=== PATIENT | male | born 1995 | race Caucasian/White ===

== ENCOUNTER 2017-06-15 19:28 | Inpatient (IN) | payer MEDICAID ==
[~2017-06-15] VITALS: Ht 170.2 cm; Wt 100.0 kg
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
[2017-06-15] MEDS ORDERED: HYDROCODONE/APAP (10/325) TAB PO ONE (22:00)
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
[2017-06-15] MEDS ORDERED: ONDANSETRON 4 MG INJ IV STA (22:47)
[2017-06-15] MEDS ORDERED: morphine 4 MG/ML VIAL IV STA (22:47)
[2017-06-15] MEDS ORDERED: SOD CHLORIDE 0.9% 1,000 ML IV SCH (23:00)
[2017-06-15 23:28] LABS: ABNORMAL IP MESSAGE 1; BASOPHILS % 0.2 % (0.0-2.0); HEMATOCRIT 43.7 % (42.0-52.0); LYMPHOCYTES # 1.1 10^3/ul (0.8-2.9); LYMPHOCYTES % 5.7 % (15.0-51.0); MEAN CORPUSCULAR HEMOGLOBIN 30.8 pg (29.0-33.0); MEAN CORPUSCULAR HGB CONC 34.3 g/dl (32.0-37.0); MEAN CORPUSCULAR VOLUME 89.7 fl (82.0-101.0); MEAN PLATELET VOLUME 10.3 fl (7.4-10.4); MONOCYTE # 1.6 10^3/ul (0.3-0.9); MONOCYTES % 8.1 % (0.0-11.0); NEUTROPHIL # 16.4 10^3/ul (1.6-7.5); NEUTROPHILS % 85.5 % (39.0-77.0); PLATELET COUNT 330 10^3/UL (140-415); POSITIVE DIFF @See below; RED BLOOD COUNT 4.87 10^6/ul (4.70-6.10); RED CELL DISTRIBUTION WIDTH 12.9 % (11.5-14.5); WHITE BLOOD COUNT 19.2 10^3/ul (4.8-10.8)
--- NOTE | 2017-06-15 23:43 | EN ---
Date/Time of Note Date/Time of Note DATE: 06/15/17 TIME: 23:42 ER Progress Note Patient admitted to hospitalist. Dr. Solis from orthopedics consulted. BAO PRESLEY Jun 15, 2017 23:43
[2017-06-16] LABS: ALBUMIN 4.7 g/dl (3.3-4.9); ALBUMIN/GLOBULIN RATIO 1.17; BILIRUBIN,INDIRECT 0.2 mg/dl (0-1.1); BILIRUBIN,TOTAL 0.2 mg/dl (0.2-1.3); CALCIUM 10.3 mg/dl (8.4-10.2); CREATININE 0.97 mg/dl (0.61-1.24); POTASSIUM 4.2 mmol/L (3.5-5.1); TOTAL PROTEIN 8.7 g/dl (6.1-8.1)
[2017-06-16 00:16] LABS: INR 0.93; PROTIME 12.5 Sec (12.2-14.2)
[2017-06-16] MEDS ORDERED: KETOROLAC 30 MG INJ IV ONE (00:26)
[2017-06-16] MEDS ORDERED: SOD CHLORIDE 0.9% 1,000 ML IV SCH (00:37)
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
[2017-06-16 00:55] VITALS: TEMP 98.2
[2017-06-16] MEDS ORDERED: NACL 0.9% 3 ML SYG IV SCH (01:00)
[2017-06-16] MEDS ORDERED: ACETAMINOPHEN 325 MG TAB PO PRN (01:00)
[2017-06-16] MEDS ORDERED: ONDANSETRON 4 MG INJ IV PRN (01:00)
[2017-06-16 01:15] VITALS: BP 134/75; PULSE 71; RESP 18
[2017-06-16] MEDS: HYDROmorphONE 0.5 MG/0.5 ML SYG IV PRN ×4 (01:34→16:30)
[2017-06-16 01:42] VITALS: Ht 170.2 cm; Wt 100.0 kg
[2017-06-16 05:41] LABS: ABNORMAL IP MESSAGE 1; BASOPHILS % 0.2 % (0.0-2.0); EOSINOPHILS % 0.1 % (0.0-7.0); HEMATOCRIT 42.2 % (42.0-52.0); HEMOGLOBIN 14.2 g/dl (14.0-18.0); LYMPHOCYTES # 2.4 10^3/ul (0.8-2.9); LYMPHOCYTES % 18.8 % (15.0-51.0); MEAN CORPUSCULAR HEMOGLOBIN 30.7 pg (29.0-33.0); MEAN CORPUSCULAR HGB CONC 33.6 g/dl (32.0-37.0); MEAN CORPUSCULAR VOLUME 91.1 fl (82.0-101.0); MEAN PLATELET VOLUME 10.5 fl (7.4-10.4); MONOCYTE # 1.5 10^3/ul (0.3-0.9); MONOCYTES % 11.9 % (0.0-11.0); NEUTROPHIL # 8.8 10^3/ul (1.6-7.5); NEUTROPHILS % 68.7 % (39.0-77.0); PLATELET COUNT 299 10^3/UL (140-415); POSITIVE DIFF @See below; RED BLOOD COUNT 4.63 10^6/ul (4.70-6.10); RED CELL DISTRIBUTION WIDTH 13.1 % (11.5-14.5); WHITE BLOOD COUNT 12.8 10^3/ul (4.8-10.8)
[2017-06-16 06:10] LABS: INR 0.95; PROTIME 12.7 Sec (12.2-14.2)
[2017-06-16 06:11] LABS: PARTIAL THROMBOPLASTIN TIME 26.1 Sec (25.0-35.0)
[2017-06-16 06:16] LABS: ALBUMIN 4.2 g/dl (3.3-4.9); ALBUMIN/GLOBULIN RATIO 1.1; BILIRUBIN,INDIRECT 0.5 mg/dl (0-1.1); BILIRUBIN,TOTAL 0.5 mg/dl (0.2-1.3); CALCIUM 9.5 mg/dl (8.4-10.2); CREATININE 0.92 mg/dl (0.61-1.24); POTASSIUM 4.1 mmol/L (3.5-5.1)
[2017-06-16 06:34] LABS: THYROID STIMULATING HORMONE 3.01 MIU/L (0.465-4.680)
[2017-06-16 07:57] VITALS: BP 107/59; RESP 19
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
[2017-06-16] MEDS ORDERED: HYDROCODONE/APAP (5/325) TAB PO PRN (10:00)
[2017-06-16] MEDS: IBUPROFEN 600 MG TAB PO SCH ×2 (13:45→21:06)
[2017-06-16 15:41] VITALS: BP 121/59; RESP 19
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
[2017-06-16 19:57] VITALS: BP 122/81; RESP 18
[2017-06-16] MEDS: SOD CHLORIDE 0.9% 1,000 ML IV SCH (22:56)
[2017-06-17] VITALS (34 sets, daily range): BP systolic 102–177; BP diastolic 52–103; PULSE 78–134; RESP 16–21
[2017-06-17] MEDS: HYDROmorphONE 0.5 MG/0.5 ML SYG IV PRN ×3 (00:45→09:33)
[2017-06-17 05:53] LABS: BASOPHILS % 0.2 % (0.0-2.0); EOSINOPHILS # 0.1 10^3/ul (0.0-0.5); EOSINOPHILS % 1.4 % (0.0-7.0); HEMATOCRIT 42.1 % (42.0-52.0); HEMOGLOBIN 14.4 g/dl (14.0-18.0); LYMPHOCYTES # 2.5 10^3/ul (0.8-2.9); LYMPHOCYTES % 27.3 % (15.0-51.0); MEAN CORPUSCULAR HEMOGLOBIN 31.2 pg (29.0-33.0); MEAN CORPUSCULAR HGB CONC 34.2 g/dl (32.0-37.0); MEAN CORPUSCULAR VOLUME 91.1 fl (82.0-101.0); MEAN PLATELET VOLUME 10.5 fl (7.4-10.4); MONOCYTE # 1.1 10^3/ul (0.3-0.9); MONOCYTES % 11.8 % (0.0-11.0); NEUTROPHIL # 5.3 10^3/ul (1.6-7.5); NEUTROPHILS % 58.9 % (39.0-77.0); PLATELET COUNT 287 10^3/UL (140-415); RED BLOOD COUNT 4.62 10^6/ul (4.70-6.10); RED CELL DISTRIBUTION WIDTH 13.2 % (11.5-14.5)
[2017-06-17 06:18] LABS: CALCIUM 9.3 mg/dl (8.4-10.2); CREATININE 0.87 mg/dl (0.61-1.24)
[2017-06-17] MEDS: IBUPROFEN 600 MG TAB PO SCH ×3 (08:00→20:58)
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
[2017-06-17] MEDS: FISH OIL 1,000 MG CAP PO SCH ×2 (10:00→20:58)
--- NOTE | 2017-06-17 12:22 | HPN ---
Date/Time of Note Date/Time of Note DATE: 06/17/17 TIME: 12:22 Interval H&P Admission Note Pt. seen H&P reviewed: No system changes PEYMAN HERNANDEZ MD Jun 17, 2017 12:22
[2017-06-17] MEDS ORDERED: POLYMYXIN/BACITRACIN 1L IRRIG IRR ONE (12:40)
[2017-06-17] MEDS ORDERED: LIDOCAINE 2% (SDV) 5 ML INJ ONE (12:49)
[2017-06-17] MEDS ORDERED: GLYCOPYRROLATE 0.4 MG INJ ONE (12:49)
[2017-06-17] MEDS ORDERED: NEOSTIGMINE 3 MG/3 ML SYRINGE ONE (12:49)
[2017-06-17] MEDS ORDERED: SUCCINYLCHOLINE CHLORIDE 100 MG/5 ML SYG IV ONE (12:49)
[2017-06-17] MEDS ORDERED: ROCURONIUM 50 MG INJ ONE (12:49)
[2017-06-17] MEDS ORDERED: PROPOFOL 20 ML ONE (12:49)
[2017-06-17] MEDS ORDERED: MEPERIDINE 100 MG INJ ONE (12:49)
--- NOTE | 2017-06-17 12:55 | RADRPT ---
PROCEDURE: Soft tissue neck radiograph CLINICAL INDICATION: Pain. COMPARISON: None relevant listed. TECHNIQUE: Frontal and lateral radiograph of the neck soft tissues. FINDINGS: No prevertebral soft tissue swelling. No retained foreign body identified. The adenoids are not enlarged. No suspicious bone lesion. No fracture or subluxation of the cervical spine. IMPRESSION: No fracture identified. RPTAT: PP Physician Ariel Date Time Electronically viewed and signed by Justyna Iglesias Physician on 06/17/2017 12:55 LG/
[2017-06-17] MEDS ORDERED: EPHEDrine SULFATE 50 MG/5 ML SYG IV PRN (13:00)
[2017-06-17] MEDS ORDERED: HYDROmorphONE (0.2 MG/ML) 10ML SYG IV PRN ×3 (13:00)
[2017-06-17] MEDS ORDERED: MEPERIDINE 25 MG INJ IV PRN (13:00)
[2017-06-17] MEDS ORDERED: LABETALOL HCL 20MG INJ IV PRN (13:00)
[2017-06-17] MEDS ORDERED: DIPHENHYDRAMINE 50 MG INJ IV PRN (13:00)
[2017-06-17] MEDS ORDERED: hydrALAzine 20 MG INJ IV PRN (13:00)
[2017-06-17] MEDS ORDERED: FENTAnyl 50 MCG/ML VIAL IV PRN ×3 (13:00)
[2017-06-17] MEDS ORDERED: ONDANSETRON 4 MG INJ IV PRN (13:00)
[2017-06-17] MEDS ORDERED: METOCLOPRAMIDE 10 MG INJ IV PRN (13:00)
[2017-06-17] MEDS ORDERED: MIDAZOLAM 1 MG/ML 2 ML INJ IV PRN (13:00)
[2017-06-17] MEDS ORDERED: OXYCODONE/ACETAMINOPHEN (5/325) TAB PO PRN ×2 (13:00)
[2017-06-17] MEDS: SOD CHLORIDE 0.9% 1,000 ML IV SCH (13:06)
--- NOTE | 2017-06-17 15:35 | SIPON ---
Date/Time of Note Date/Time of Note DATE: 06/17/17 TIME: 15:22 Operative Report Preoperative Diagnosis . fracture dislocation of lisfranc joint of Rt.foot. fracture of 2nd,3rd,4th metatarsal shaft Postoperative Diagnosis same as preop Operation/Procedure Performed 1 open reduction and internal fixation of Lisfranc joimt fracture dislocation of Rt.foot. 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
[2017-06-17] MEDS ORDERED: NACL 0.9% 3 ML SYG IV SCH (16:00)
[2017-06-17] MEDS ORDERED: morphine 4 MG/ML VIAL IV PRN (16:00)
--- NOTE | 2017-06-17 16:28 | RADRPT ---
PROCEDURE: XR Foot. CLINICAL INDICATION: Pain. TECHNIQUE: Tarsometatarsal dislocations and metatarsal fracture status post cervical repair. COMPARISON: 03/15/2017 FINDINGS: 4 K-wires traverse the second through fifth metatarsal bases and middle, lateral cuneiform and cuboi d. A fifth K-wire traverses the right medial cuneiform and middle cuneiform. Improved anatomic align ment and fracture fragment approximation of distal metatarsal diaphyseal fractures of the second and third metatarsal bones. Suture kristen overlying the dorsum of the foot. No other fracture or dislo cation. IMPRESSION: 1. Postoperative changes compatible with tarsometatarsal dislocation repair and improved anatomic al ignment second through fourth metatarsal fractures. RPTAT:AAJJ Physician Nighat Date Time Electronically viewed and signed by Physician Nighat on 06/17/2017 16:27 SAGRARIO/
--- NOTE | 2017-06-17 16:44 | RADRPT ---
PROCEDURE: Intraoperative imaging of the bilateral feet with fluoroscopy. CLINICAL INDICATION: Bilateral foot pain Intraoperative. TECHNIQUE: Images of the bilateral feet were obtained in the operating room with an image intensif ier. No radiologist was in attendance. Fluoroscopy time is 1.5 minutes and 9 images were obtained. COMPARISON: No prior study is available for comparison. FINDINGS: Images demonstrate multiple surgical instruments overlying the midportion of both feet. IMPRESSION: 1. Intraoperative imaging of the bilateral feet. RPTAT: QQ .Cody Bell MD, Date Time Electronically viewed and signed by .Cody Bell MD, on 06/17/2017 16:44 .R/
[2017-06-17] MEDS ORDERED: hydrALAzine 20 MG INJ ONE (17:06)
[2017-06-17] MEDS: D5W-0.45 NACL + KCL 20 MEQ 1,000 ML IV SCH (17:44)
[2017-06-17] MEDS: HYDROCODONE/APAP (5/325) TAB PO PRN ×2 (17:54→22:02)
[2017-06-17] MEDS: CEFAZOLIN 1 GM/50 ML (PMX) 50 ML IVPB SCH ×2 (17:55→23:30)
--- NOTE | 2017-06-17 18:08 | OPR ---
DATE OF OPERATION: 06/17/2017 PREOPERATIVE DIAGNOSES: 1. Fracture dislocation of the Lisfranc joint of the right foot. 2. Fracture of the 2nd, 3rd, and 4th metatarsals of right foot. POSTOPERATIVE DIAGNOSES: 1. Fracture dislocation of the Lisfranc joint of the right foot. 2. Fracture of the 2nd, 3rd, and 4th metatarsals of right foot. PROCEDURE PERFORMED: 1. Open reduction and internal fixation of the marked metatarsal tarsal joint or Lisfranc joint of the right foot. 2. Manipulative reduction of the 2nd, 3rd, and 4th metatarsal shaft fracture of the right foot. ANESTHESIA: General anesthesia. SURGEON: Royce Solis MD OPERATIVE PROCEDURE AND FINDINGS: Under general anesthesia, the patient was placed in supine position upon the operating table. A tourniquet was placed over the proximal portion of the right thigh and was inflated up to 300 mmHg prior to the procedure. The usual prep and drape was done exposing the right lower extremity. The tarsal joint fracture dislocation was approached through the transverse incision over the dorsum of the right foot with considerable difficulties. The metatarsal tarsal joint was identified and reduced and this was internally fixed using multiple K-wires. After the reduction and fixation of the metatarsal tarsal joint, attention was then directed to the multiple metatarsal fractures, however, because of the less than ideal soft tissue condition, additional incision over the area to carry out the open surgical reduction might cause soft tissue problems including possible necrosis and it was decided to carry out the manipulative reduction under fluoroscopic monitoring followed by a luis carlos taping. At the end of the procedure the wound was irrigated, and following the hemostasis, closure of the incision was carried out using 2-0 Vicryl in subcuticular fashion, which was followed by final closure with skin kristen. After bending the J wire tips, and after proper sterile dressings, the entire right foot was immobilized in a postoperative hard sole shoe. The patient tolerated the entire procedure very well and was sent to the recovery room in good condition. Dictated By: In Cass Solis MD /mitchell/[email or web address] /Document#: [id number]
[2017-06-18] MEDS: HYDROCODONE/APAP (5/325) TAB PO PRN ×4 (01:35→21:25)
[2017-06-18] MEDS: D5W-0.45 NACL + KCL 20 MEQ 1,000 ML IV SCH ×3 (01:36→16:08)
[2017-06-18 05:13] LABS: BASOPHILS % 0.1 % (0.0-2.0); EOSINOPHILS % 0.4 % (0.0-7.0); HEMOGLOBIN 13.4 g/dl (14.0-18.0); MEAN CORPUSCULAR HGB CONC 33.5 g/dl (32.0-37.0); MEAN CORPUSCULAR VOLUME 92.6 fl (82.0-101.0); MEAN PLATELET VOLUME 10.1 fl (7.4-10.4); MONOCYTE # 1.2 10^3/ul (0.3-0.9); MONOCYTES % 11.8 % (0.0-11.0); NEUTROPHILS % 68.3 % (39.0-77.0); PLATELET COUNT 271 10^3/UL (140-415); RED BLOOD COUNT 4.32 10^6/ul (4.70-6.10); RED CELL DISTRIBUTION WIDTH 13.2 % (11.5-14.5); WHITE BLOOD COUNT 10.3 10^3/ul (4.8-10.8)
[2017-06-18 05:35] LABS: CALCIUM 9.3 mg/dl (8.4-10.2); CREATININE 0.83 mg/dl (0.61-1.24); POTASSIUM 4.1 mmol/L (3.5-5.1)
[2017-06-18] MEDS ORDERED: morphine 2 MG INJ IV ONE (06:49)
--- NOTE | 2017-06-18 07:18 | RADRPT ---
PROCEDURE: XR Chest. CLINICAL INDICATION: chest pain TECHNIQUE: Single frontal view of the chest was obtained COMPARISON: None FINDINGS: The heart and mediastinum are within normal limits. The lungs are clear. There is no pleural effusion or pneumothorax. RPTAT: AA IMPRESSION: No acute disease. .Mukesh Self MD, Date Time Electronically viewed and signed by .Mukesh Self MD, on 06/18/2017 07:18 .S/
[2017-06-18] MEDS ORDERED: KETOROLAC 15 MG INJ IV STA (07:38)
[2017-06-18] MEDS: CEFAZOLIN 1 GM/50 ML (PMX) 50 ML IVPB SCH (07:59)
[2017-06-18 08:14] VITALS: BP 133/66; RESP 18
[2017-06-18 08:17] LABS: TROPONIN-I 0.013 ng/ml (0.00-0.12)
[2017-06-18 08:18] LABS: CK-MB 1.35 ng/ml (0.0-2.4)
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
[2017-06-18] MEDS: FISH OIL 1,000 MG CAP PO SCH ×2 (09:30→21:27)
[2017-06-18] MEDS: IBUPROFEN 600 MG TAB PO SCH ×3 (09:30→21:25)
[2017-06-18] MEDS: ENOXAPARIN 40 MG/0.4 ML SYG SC SCH (09:33)
[2017-06-18 15:57] LABS: CK-MB 1.76 ng/ml (0.0-2.4); TROPONIN-I < 0.012 ng/ml (0.00-0.12)
[2017-06-18 16:00] VITALS: BP 119/61; RESP 18
[2017-06-18 20:25] VITALS: BP 120/66; RESP 20
[2017-06-18 20:26] VITALS: PULSE 89
[2017-06-19] MEDS: HYDROCODONE/APAP (5/325) TAB PO PRN ×6 (00:20→21:48)
[2017-06-19 03:04] VITALS: BP 122/62; RESP 18
[2017-06-19 05:20] LABS: BASOPHILS % 0.3 % (0.0-2.0); EOSINOPHILS # 0.2 10^3/ul (0.0-0.5); EOSINOPHILS % 1.6 % (0.0-7.0); HEMOGLOBIN 12.9 g/dl (14.0-18.0); LYMPHOCYTES # 2.4 10^3/ul (0.8-2.9); LYMPHOCYTES % 24.6 % (15.0-51.0); MEAN CORPUSCULAR HEMOGLOBIN 31.2 pg (29.0-33.0); MEAN CORPUSCULAR HGB CONC 33.9 g/dl (32.0-37.0); MEAN CORPUSCULAR VOLUME 91.8 fl (82.0-101.0); MEAN PLATELET VOLUME 10.2 fl (7.4-10.4); MONOCYTES % 9.9 % (0.0-11.0); NEUTROPHILS % 63.1 % (39.0-77.0); PLATELET COUNT 287 10^3/UL (140-415); RED BLOOD COUNT 4.14 10^6/ul (4.70-6.10); RED CELL DISTRIBUTION WIDTH 13.1 % (11.5-14.5); WHITE BLOOD COUNT 9.6 10^3/ul (4.8-10.8)
[2017-06-19 06:06] LABS: CALCIUM 9.1 mg/dl (8.4-10.2); CREATININE 0.85 mg/dl (0.61-1.24); POTASSIUM 3.7 mmol/L (3.5-5.1)
[2017-06-19] MEDS: D5W-0.45 NACL + KCL 20 MEQ 1,000 ML IV SCH ×2 (07:36→17:36)
[2017-06-19 08:37] VITALS: BP 110/58; RESP 18
[2017-06-19] MEDS: IBUPROFEN 600 MG TAB PO SCH ×3 (08:56→21:44)
[2017-06-19] MEDS: FISH OIL 1,000 MG CAP PO SCH ×2 (08:56→21:44)
[2017-06-19] MEDS: ENOXAPARIN 40 MG/0.4 ML SYG SC SCH (09:00)
--- NOTE | 2017-06-19 10:07 | PN ---
Date/Time of Note Date/Time of Note DATE: 06/19/17 TIME: 10:02 Assessment/Plan VTE Prophylaxis VTE Prophylaxis Intervention: LMWH Lines/Catheters [facility] Peripheral IV Urinary Cath still in place: No Assessment/Plan Problems: (1) S/P ORIF (open reduction internal fixation) fracture Onset Date: ~ 06/17/2017 Status: Acute Comment: Patient is progressing nicely after surgery. We will need input from the operative surgeon, Dr. Solis, about his weightbearing status and for his discharge planning. He is approaching a time for discharge at this point (2) Lisfranc fracture Status: Acute Comment: Status post surgical correction (3) Lisfranc's dislocation Status: Acute Comment: Status post surgical correction Qualifiers: Encounter type: initial encounter Laterality: right Qualified Code: S93.324A - Dislocation of tarsometatarsal joint of right foot, initial encounter (4) Hypertriglyceridemia Status: Chronic Comment: This would be benefited by weight loss the patient has been counseled. The meantime omega-3 fish oil for home usage Subjective 24 Hr Interval Summary Free Text/Dictation Charming young gentleman standing at the bedside using a front wheeled walker nonweightbearing to the right leg which is in a dressing Constitutional: no complaints Eyes: no complaints Respiratory: no complaints (Denies chest pain shortness of breath) Cardiovascular: no complaints (Denies palpitation) Gastrointestinal: no complaints Genitourinary: no complaints Musculoskeletal: other (Foot pain on the right-hand side) Exam/Review of Systems Vital Signs Vitals Vital Signs Date Time Temp Pulse Resp B/P Pulse Ox O2 Delivery O2 Flow Rate FiO2 06/19/17 08:37 98.2 77 18 110/58 97 06/17/17 20:30 Nasal Cannula 2.0 Intake and Output 06/18/17 06/18/17 06/19/17 15:00 23:00 07:00 Intake Total 50 ml 2400 ml 1600 ml Output Total 1000 ml 1400 ml Balance 50 ml 1400 ml 200 ml Exam Constitutional: alert, oriented Neck: non-tender, supple Respiratory: clear to auscultation, normal air movement Cardiovascular: nl pulses, regular rate and rhythm Gastrointestinal: nl liver, spleen, non-tender, soft Extremities: normal pulses, other (Normal sensory exam to the right distal foot ) Results Result Diagram: 06/19/17 0432 06/19/17 0432 Results 24 hrs Laboratory Tests Test 06/18/17 14:37 06/19/17 04:32 Creatinine Kinase MB (Mass) 1.76 Troponin I < 0.012 White Blood Count 9.6 Red Blood Count 4.14 L Hemoglobin 12.9 L Hematocrit 38.0 L Mean Corpuscular Volume 91.8 Mean Corpuscular Hemoglobin 31.2 Mean Corpuscular Hemoglobin Concent 33.9 Red Cell Distribution Width 13.1 Platelet Count 287 Mean Platelet Volume 10.2 Neutrophils % 63.1 Lymphocytes % 24.6 Monocytes % 9.9 Eosinophils % 1.6 Basophils % 0.3 Nucleated Red Blood Cells % 0.0 Neutrophils # 6.0 Lymphocytes # 2.4 Monocytes # 1.0 H Eosinophils # 0.2 Basophils # 0.0 Nucleated Red Blood Cells # 0.0 Sodium Level 142 Potassium Level 3.7 Chloride Level 104 Carbon Dioxide Level 27 Anion Gap 15 Blood Urea Nitrogen 8 Creatinine 0.85 Glucose Level 95 Calcium Level 9.1 Medications Medications Current Medications Ondansetron HCl (Zofran Inj) 4 mg Q6H PRN IV NAUSEA AND/OR VOMITING; Start at 01:00 Acetaminophen (Tylenol Tab) 650 mg Q6H PRN PO PAIN LEVEL 1-3 OR FEVER; Start 06/16/17 at 01:00 Ibuprofen (Motrin) 600 mg TID PO Last administered on 06/19/17 08:56; Admin Dose 600 MG; Start 06/16/17 at 13:00 Fish Oil 1000 mg 1,000 mg BID PO Last administered on 06/19/17 08:56; Admin Dose 1,000 MG; Start 06/17/17 at 10:00 Potassium Chloride/Dextrose/ Sod Cl (D5-1/2ns + KCl 20 Meq) 1,000 ml @ 100 mls/ hr Q10H IV Last administered on 06/18/17 16:08; Admin Dose 100 MLS/HR; Start 06/17/17 at 15:36 Enoxaparin Sodium (Lovenox) 40 mg DAILY SC Last administered on 06/19/17 09:00 ; Admin Dose 40 MG; Start 06/18/17 at 09:00 Morphine Sulfate (morphine) 3 mg Q3H PRN IV PAIN; Start 06/17/17 at 16:00 Acetaminophen/ Hydrocodone Bitart ([place] (5325)) 1 tab Q3H PRN PO PAIN Last administered on 06/19/17 08:56; Admin Dose 1 TAB; Start 06/17/17 at 16:00 SHAHEED LUCAS MD Jun 19, 2017 10:07
[2017-06-19 16:47] VITALS: BP 120/64; RESP 18
[2017-06-19 20:00] VITALS: BP 129/70; RESP 19
[2017-06-20 02:00] VITALS: BP 124/58; RESP 19
[2017-06-20] MEDS: HYDROCODONE/APAP (5/325) TAB PO PRN ×4 (02:20→17:25)
[2017-06-20] MEDS: D5W-0.45 NACL + KCL 20 MEQ 1,000 ML IV SCH (03:36)
[2017-06-20 07:36] VITALS: BP 109/59; RESP 18
[2017-06-20] MEDS: FISH OIL 1,000 MG CAP PO SCH (09:10)
[2017-06-20] MEDS: IBUPROFEN 600 MG TAB PO SCH ×2 (09:10→13:59)
[2017-06-20] MEDS: ENOXAPARIN 40 MG/0.4 ML SYG SC SCH (09:12)
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
[2017-06-20] MEDS ORDERED: HYDR-3498 PO (11:08)
[2017-06-20] MEDS ORDERED: OMEG1CAP55 PO (11:08)
[2017-06-20] MEDS ORDERED: IBUP-1542 PO (11:08)
[2017-06-20 16:09] VITALS: BP 140/76; RESP 20
--- NOTE | 2017-06-21 13:21 | RADRPT ---
Vent Rate: 77 bpm RR Interval: 0 msec MT Interval: 150 msec QRS Duration: 86 msec QT Interval: 384 msec QTC Interval: 434 msec P-R-T [place]: 64 - 61 - 31 degrees Normal sinus rhythm Normal ECG Electronically Signed By: Dexter Dallas [id number]
== END 2017-06-20 19:30 | disposition home or self-care (01) | DRG 505 ==
LOC: FTE 19:28 → MS1 23:40
PROVIDERS: ADMIT Family Medicine; ATTEND Family Medicine
PROC: 0QSL04Z Reposition Right Tarsal with Internal Fixation Device, Open Approach (ICD-10-PCS; 2017-06-17)
PROC: 0QSNXZZ Reposition Right Metatarsal, External Approach (ICD-10-PCS; 2017-06-17)
PROC: 0QSN04Z Reposition Right Metatarsal with Internal Fixation Device, Open Approach (ICD-10-PCS; principal; 2017-06-17 11:00)
DX: S92.811A Other fracture of right foot, initial encounter for closed fracture (principal); E78.1 Pure hyperglyceridemia; E66.9 Obesity, unspecified; S92.321A Displaced fracture of second metatarsal bone, right foot, initial encounter for closed fracture; S92.331A Displaced fracture of third metatarsal bone, right foot, initial encounter for closed fracture; S92.341A Displaced fracture of fourth metatarsal bone, right foot, initial encounter for closed fracture; D72.829 Elevated white blood cell count, unspecified; Z68.34 Body mass index [BMI] 34.0-34.9, adult; V43.62XA Car passenger injured in collision with other type car in traffic accident, initial encounter; Y92.414 Local residential or business street as the place of occurrence of the external cause
CPT/HCPCS: 70360; 71010; 71020; 73590; 73630; 73700; 80048; 80053; 80061; 82553; 83036; 83735; 84443; 84484; 85025; 85610; 85730; 93005; 96374; 96375; 97110; 97116; 97162; 97530; C1713; J0360; J0690; J1170; J1650; J1885; J2175; J2270; J2405; J2710; J2765; J3010; J3480; J7030